=== PATIENT | female | born 1970 | race Asian ===

== ENCOUNTER → 2016-07-09 | Day surgery (SDC) | payer BC ==
[~2016-07-09] MED LIST: Buffered Lidocaine 1% SYR 3ML* 3 ML/SYR SYRINGE INTRADERM ONE; Buffered Lidocaine 1% SYR 3ML* 3 ML/SYR SYRINGE ONE; Dexamethasone IV* 4 MG/ML 1 ML (4 MG) ONE; DiMENhydriNATE IV* 50 MG/ML VIAL IV PUSH ONE; DiMENhydriNATE IV* 50 MG/ML VIAL ONE; Famotidine IV* 10 MG/ML 2 ML (20 mg) IV ONE; Famotidine IV* 10 MG/ML 2 ML (20 mg) ONE; HYDROmorphone INJ* 1 MG/ML CARPUJECT SYRINGE IV PRN; KETAMINE HCL* 50 MG/ML 10 ML VIAL ONE; Ketorolac INJ* 30 MG/ML 1 ML VIAL ONE; Lidocaine 2% MPF* 2 ML VIAL ONE; Metoclopramide TAB* 10 MG ONE; Metoclopramide TAB* 10 MG PO ONE; Midazolam* 1 MG/ML 5 ML VIAL (5 MG) ONE; Ondansetron INJ* 2 MG/ML VIAL IV PRN; Ondansetron INJ* 2 MG/ML VIAL ONE; Propofol* 10 MG/ML 20 ML BTL IV PUSH ONE; fentaNYL* 50 MCG/ML 2 ML VIAL (100 MCG VIAL) ONE; oxyCODONE/Acetamin 5/325 MG* TAB ONE; oxyCODONE/Acetamin 5/325 MG* TAB PO PRN
[2016-07-09] MEDS: fentaNYL* 50 MCG/ML 2 ML VIAL (100 MCG VIAL) IV PRN ×3 (14:41→15:00)
[2016-07-09 15:58] VITALS: BP 129/68
--- NOTE | 2016-07-11 07:33 | OP ---
OPERATIVE REPORT: DATE OF OPERATION: 07/09/16 DATE OF : 68 SURGEON: Chantelle Lewis MD. ANESTHESIA: Spinal anesthetic. PRE-OP DIAGNOSES: Menorrhagia and fibroid uterus. POST-OP DIAGNOSES: Menorrhagia, fibroid uterus, and endometrial polyps. OPERATIVE PROCEDURE: Hysteroscopy, dilation and curettage, MyoSure polypectomy , and endometrial ablation using NovaSure. INDICATIONS: This patient was a 45-year-old 4 para 2 who presented to the clinic requesting treatment for her very heavy periods. The patient had a known fibroid uterus, but none of the fibroids appeared to be impinging on the endometrial cavity. An endometrial biopsy was benign. She decided to proceed with an endometrial ablation with the understanding that it was somewhat less likely to be successful due to her fibroids. She was extensively counseled and consent was signed. ESTIMATED BLOOD LOSS: Less than 10 cc. URINE OUTPUT: 25 cc. IV FLUIDS: 1250 cc lactated Ringer's. HYSTEROSCOPIC DEFICIT: Approximately 150 cc of normal saline. FINDINGS: Uterine cavity with no many polypoid structures consistent with endometrial polyps. Once these were removed, there were no visible abnormalities in the uterus, and there was no evidence of submucosal fibroids. COMPLICATIONS: None. MATERIALS TO LAB: Endometrial polyps and endometrial curettings. DESCRIPTION OF PROCEDURE: The risks, benefits, and alternatives were described to the patient and informed consent was obtained. The patient was taken to the operating room with IV running where a spinal anesthesia was induced and found to be adequate. The patient was prepped and draped in a normal sterile fashion in the high lithotomy position in [facility]. A time-out was performed. The bladder was emptied. A bivalved speculum was placed in the vagina and a single- tooth tenaculum was placed on the anterior cervix. The cervix was then gently dilated using Partha's dilators to a size of 27. At that time, a MyoSure hysteroscope was advanced through the cervix and into the uterine cavity with saline running. A regular-sized MyoSure was then used to resect the many apparent polyps that were seen throughout the endometrial cavity. Once this was performed, there was no persistent bleeding at that time. The hysteroscope was removed. A curettage of the uterine cavity was then performed and collected on [facility]. A NovaSure ablation device was then prepared and placed through the cervix and into the uterine cavity. The cavity length was measured at 5 cm and the cavity width was found to be 4.8 cm. After a negative cavity assessment, the ablation was performed. This was done with a power of 132 and the time of ablation was 1 minute 32 seconds. After the ablation had been completed, the device was removed. The hysteroscope was replaced into the uterine cavity with saline running and there appeared to be very good ablation of the entire cavity. The hysteroscope was then removed. The tenaculum was removed from the cervix and there was good hemostasis present. The speculum was then removed and the patient was returned to the supine position. The patient tolerated the procedure well. Sponge, lap, and needle counts were correct x2. [id number]/CPS #: [id number] MTDD
== END | disposition home or self-care (01) ==
LOC: OR 09:04
PROVIDERS: ATTEND Obstetrics & Gynecology
DX: N92.0 Excessive and frequent menstruation with regular cycle (principal); D25.0 Submucous leiomyoma of uterus
CPT/HCPCS: 88305; A9270-GY; J1100; J1240; J1885; J2250; J2405; J2704; J3010

== ENCOUNTER 2016-10-24 17:50 | Emergency (ER) | payer BC ==
[2016-10-24 18:13] VITALS: BP 127/83
--- NOTE | 2016-10-24 18:48 | UC ---
Back Pain HPI - HPI Summary HPI Summary: The patient comes in today for: 1. Back pain: Onset: 2-3 hours ago. Palliative/provocative: Forward flexion makes it better. Quality: dull ache. Region: Lower back Severity: 6/10 Time: Constant. 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 She was leaning forward and felt a sudden sharp pain. It did not go away after stretching. Previous treatment: She took 600 mg ibuprofen which helped, but not all the way. Fevers/infection: NOne. Cancers/unexpected weight loss: None. Numbness or tingling/focal weakness: None She is comfortable laying on her right side with her knees up. Spasm: None, but she states that she has a feeling of "tightness." * - History of Current Complaint Chief Complaint: UCBackPain Stated Complaint: BACK PAIN Time Seen by Provider: 10/24/16 18:43 Hx Obtained From: Patient Hx Last Menstrual Period: May; had endometrial ablasin in June - Allergies/Home Medications Allergies/Adverse Reactions: Allergies Allergy/AdvReac Type Severity Reaction Status Date / Time Sulfa Antibiotics Allergy Intermediate Rash Verified 10/24/16 18:06 PMH/Surg Hx/FS Hx/Imm Hx Previously Healthy: Yes Endocrine History Of: Denies: Diabetes, Thyroid Disease, Hyperthyroidism, Hypothyroidism, Dyslipidemia Cardiovascular History Of: 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 Denies: Cardiac Disorders, Pacemaker/ICD, Myocardial Infarction, Congestive Heart Failure, Atrial Fibrillation, Deep Vein Thrombosis, Bleeding Disorders Respiratory History Of: Denies: COPD, Asthma, Bronchitis, Pneumonia, Pulmonary Embolism GI/ History Of: Denies: Gastroesophageal Reflux, Ulcer, Gastrointestinal Bleed, Gall Bladder Disease, Kidney Stones, Diverticulitis, Renal Disease, Urosepsis Neurological History Of: Denies: TIA, CVA, Dementia, Seizures, Migraine Psychological History Of: Reports: Anxiety - mild Denies: Depression, Bipolar Disorder, Schizophrenia, Post Traumatic Stress Disorder Cancer History Of: Denies: Lung Cancer, Colorectal Cancer, Breast Cancer, Prostate Cancer, Cervical Cancer Other History Of: Negative For: HIV, Hepatitis B, Hepatitis C, Anticoagulant Therapy - Surgical History Surgical History: Yes Surgery Procedure, Year, and Place: 2 C-SECTIONS; tubal ligation 2005; Rt humerus cysts removed 2011 which was benign, endometrial ablasion 2016 - Family History Known Family History: Positive: Hypertension Negative: Cardiac Disease - Social History Occupation: Employed Full-time Alcohol Use: None Substance Use Type: None Smoking Status (MU): Former Smoker When Did the Patient Quit Smoking/Using Tobacco: quit 15 years ago - Immunization History Most Recent Influenza Vaccination: Fall 2015 Review of Systems Constitutional: Negative Skin: Negative Eyes: Negative ENT: Negative Respiratory: Negative Cardiovascular: Negative Gastrointestinal: Negative Genitourinary: Negative Musculoskeletal: Arthralgia All Other Systems Reviewed And Are Negative: Yes Physical Exam Triage Information Reviewed: Yes Appearance: Well-Appearing, No Pain Distress - She is able to get on and off the exam table with no psychomotor slowing or guarding., Well-Nourished Vital Signs: Initial Vital Signs Temp 98.4 F 10/24/16 18:08 Pulse 69 10/24/16 18:08 Resp 16 10/24/16 18:08 BP 127/83 10/24/16 18:08 Pulse Ox 100 10/24/16 18:08 Vital Signs Reviewed: Yes Eyes: Positive: Conjunctiva Clear. Negative: Discharge ENT: Positive: Hearing grossly normal. Negative: Pharyngeal erythema, Nasal congestion, Nasal drainage, TM bulging, TM dull, TM red, Tonsillar swelling, Tonsillar exudate Dental: Negative: Gross Decay/Caries @, Dental Fracture @ Neck: Positive: Supple, Nontender, No Lymphadenopathy. Negative: Nuchal Rigidity Respiratory: Positive: Chest non-tender, Lungs clear, No respiratory distress, No accessory muscle use. Negative: Crackles, Wheezing Cardiovascular: Positive: RRR, No Murmur Abdomen Description: Positive: Nontender, No Organomegaly, Soft. Negative: Distended, Guarding Musculoskeletal: Positive: Strength Intact, ROM Intact - She had good range of motion with forward flexion and extension, but left lateral flexion was somewhat limited., No Edema, Other: - Back: She had no tenderness to palpation of the lower lumbar right and left paraspinous musculature. There was no CVA tenderness. There was no SLR bilaterally and DTR Patellar and Achilles were 2+/ 2 x 2. Neurological: Positive: Alert, Muscle Tone Normal Psychological: Positive: Age Appropriate Behavior, Consolable Skin: Negative: rashes, breakdown Back Pain Course/Dx - Differential Dx/Diagnosis Provider Diagnoses: Lower back strain. Discharge - Discharge Plan Condition: Stable Disposition: HOME Patient Education Materials: Low Back Strain (ED) Referrals: Bijal Benoit MD [Primary Care Provider] - 4 Days (Please call your doctor's office for an appointment this coming to see how well you are doing. If you are not able to be seen then, you may return to see us.)
== END 2016-10-24 19:24 | disposition home or self-care (01) ==
LOC: UCEAST 17:50
DX: S39.012A Strain of muscle, fascia and tendon of lower back, initial encounter (principal); X50.0XXA Overexertion from strenuous movement or load, initial encounter; Y93.F9 Activity, other caregiving; Y92.129 Unspecified place in nursing home as the place of occurrence of the external cause; Y99.0 Civilian activity done for income or pay; Z88.2 Allergy status to sulfonamides; F41.9 Anxiety disorder, unspecified; Z87.891 Personal history of nicotine dependence
CPT/HCPCS: 99212; G0463

== ENCOUNTER 2016-10-27 13:50 | Emergency (ER) | payer SELFPAY ==
[2016-10-27 14:16] VITALS: BP 142/82
--- NOTE | 2016-10-27 14:39 | UC ---
Back Pain HPI - HPI Summary HPI Summary: Was seen here 4 days ago after feeling pull in back at work. 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 Was taken out of work for a week, but is now feeling better and would like to go back to her next scheduled shift on 10/29/16. No fever, weakness, numbness, tingling, or trouble with bowel or bladder. - History of Current Complaint Chief Complaint: UCBackPain Stated Complaint: RECHECK BACK INJURY Time Seen by Provider: 10/27/16 14:22 Hx Obtained From: Patient Hx Last Menstrual Period: albasion in jun. ?: No Onset/Duration: Sudden Onset Timing: Constant Severity Initially: Moderate Severity Currently: None Back Pain: Is Discrete @ Character: Dull, Aching, Spasmodic Aggravating: Movement, Cough Alleviating: Rest Associated Signs And Symptoms: Positive: Negative. 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 Denies: Cardiac Disorders, Pacemaker/ICD, Myocardial Infarction, Congestive Heart Failure, Atrial Fibrillation, Deep Vein Thrombosis, Bleeding Disorders Respiratory History Of: Denies: COPD, Asthma, Bronchitis, Pneumonia, Pulmonary Embolism GI/ History Of: Denies: Gastroesophageal Reflux, Ulcer, Gastrointestinal Bleed, Gall Bladder Disease, Kidney Stones, Diverticulitis, Renal Disease, Urosepsis Neurological History Of: Denies: TIA, CVA, Dementia, Seizures, Migraine Psychological History Of: Reports: Anxiety - mild Denies: Depression, Bipolar Disorder, Schizophrenia, Post Traumatic Stress Disorder Cancer History Of: Denies: Lung Cancer, Colorectal Cancer, Breast Cancer, Prostate Cancer, Cervical Cancer Other History Of: Negative For: HIV, Hepatitis B, Hepatitis C, Anticoagulant Therapy - Surgical History Surgical History: Yes Surgery Procedure, Year, and Place: 2 C-SECTIONS; tubal ligation 2005; Rt humerus cysts removed 2011 which was benign, endometrial ablasion 2016 - Family History Known Family History: Positive: Hypertension Negative: Cardiac Disease - Social History Occupation: Employed Part-time - [employer] Alcohol Use: None Substance Use Type: None Smoking Status (MU): Former Smoker When Did the Patient Quit Smoking/Using Tobacco: quit 15 years ago - Immunization History Most Recent Influenza Vaccination: Fall 2015 Review of Systems Constitutional: Negative Skin: Negative Eyes: Negative ENT: Negative Respiratory: Negative Cardiovascular: Negative Gastrointestinal: Negative Genitourinary: Negative Motor: Negative Neurovascular: Negative Musculoskeletal: Myalgia - back pain resolved Neurological: Negative Psychological: Negative All Other Systems Reviewed And Are Negative: Yes Physical Exam Triage Information Reviewed: Yes Appearance: Well-Appearing, No Pain Distress, Well-Nourished Vital Signs: Initial Vital Signs Temp 98.0 F 10/27/16 14:13 Pulse 77 10/27/16 14:13 Resp 16 10/27/16 14:13 BP 142/82 10/27/16 14:13 Pulse Ox 98 10/27/16 14:13 Vital Signs Reviewed: Yes Eye Exam: Normal Eyes: Positive: Conjunctiva Clear ENT Exam: Normal ENT: Positive: Normal ENT inspection, Hearing grossly normal, Pharynx normal, TMs normal Dental Exam: Normal Neck exam: Normal Neck: Positive: Supple, Nontender, No Lymphadenopathy Respiratory Exam: Normal Respiratory: Positive: Chest non-tender, Lungs clear, Normal breath sounds, No respiratory distress, No accessory muscle use Cardiovascular Exam: Normal Cardiovascular: Positive: RRR, No Murmur Musculoskeletal Exam: Normal, Other - no tenderness in back Musculoskeletal: Positive: Strength Intact, ROM Intact Neurological Exam: Normal, Other - DTRs 2+ BLE Neurological: Positive: Alert Psychological Exam: Normal Skin Exam: Normal Back Pain Course/Dx - Differential Dx/Diagnosis Provider Diagnoses: Back strain resolved Discharge - Discharge Plan Condition: Stable Disposition: HOME Patient Education Materials: Muscle Strain (ED) Forms: *Work Release Referrals: Bijal Benoit MD [Primary Care Provider] - Additional Instructions: Call or return if you have new or worsening symptoms. Take care to avoid heavy lifting or straining the back while you are getting back to work, as you will be very prone to reinjury for a couple weeks.
== END 2016-10-27 14:40 | disposition home or self-care (01) ==
LOC: UCEAST 13:50
DX: S39.012D Strain of muscle, fascia and tendon of lower back, subsequent encounter (principal); X50.0XXD Overexertion from strenuous movement or load, subsequent encounter; I10 Essential (primary) hypertension; F41.9 Anxiety disorder, unspecified; Z88.2 Allergy status to sulfonamides; Z87.891 Personal history of nicotine dependence
CPT/HCPCS: 99211; G0463